=== PATIENT | female | born 1990 | race Two or more races ===

== ENCOUNTER 2021-04-27 08:43 | Outpatient (CLI) | payer OTHER ==
[~2021-04-27 08:43] MED LIST: FOLIC ACID1 MG PO; LOVENOX40 MG/0.4 IJ; PRENATAL 19 TA1 EAC1 PO; PROGESTERONA VAG
== END 2021-04-27 08:55 | disposition home or self-care (01) ==
LOC: NST 08:43
PROVIDERS: ATTEND Obstetrics & Gynecology Maternal & Fetal Medicine
DX: Z34.83 Encounter for supervision of other normal pregnancy, third trimester (principal)

== ENCOUNTER 2021-05-11 12:36 | Outpatient (CLI) | payer OTHER | END 2021-05-11 13:56 | disposition home or self-care (01) | LOC: NST 12:36 | PROVIDERS: ATTEND Obstetrics & Gynecology | DX: Z34.82 Encounter for supervision of other normal pregnancy, second trimester (principal) ==

== ENCOUNTER 2021-05-15 11:26 | Outpatient (CLI) | payer OTHER | END 2021-05-15 11:59 | disposition home or self-care (01) | LOC: NST 11:26 | PROVIDERS: ATTEND Obstetrics & Gynecology Maternal & Fetal Medicine | DX: Z34.82 Encounter for supervision of other normal pregnancy, second trimester (principal) ==

== ENCOUNTER 2021-07-05 19:51 | Inpatient (IN) | payer OTHER ==
[~2021-07-05] VITALS: Ht 152.4 cm; Wt 72.6 kg
[2021-07-06] MEDS ORDERED: CRINONE1.125 G1 (08:34)
== END 2021-07-08 10:31 | disposition home or self-care (01) | DRG 833 ==
LOC: LDR 19:51 → OB/GYN 07-07 09:50
PROVIDERS: ADMIT Obstetrics & Gynecology Maternal & Fetal Medicine; ATTEND Obstetrics & Gynecology Maternal & Fetal Medicine
PROC: 4A1HXCZ Monitoring of Products of Conception, Cardiac Rate, External Approach (ICD-10-PCS; principal; 2021-07-05)
DX: O60.03 Preterm labor without delivery, third trimester (principal); Z3A.35 35 weeks gestation of pregnancy; Z20.822 Contact with and (suspected) exposure to COVID-19

== ENCOUNTER 2021-07-28 09:50 | Inpatient (IN) | payer OTHER ==
[~2021-07-28] VITALS: Ht 152.4 cm; Wt 70.8 kg
[~2021-07-28 09:50] MED LIST changes: +CRINONE1.125 G1
== END 2021-07-30 12:48 | disposition home or self-care (01) | DRG 788 ==
LOC: LDR 09:50 → OB/GYN 15:18
PROVIDERS: ADMIT Obstetrics & Gynecology; ATTEND Obstetrics & Gynecology
PROC: 4A1HXCZ Monitoring of Products of Conception, Cardiac Rate, External Approach (ICD-10-PCS; 2021-07-28)
PROC: 10D00Z1 Extraction of Products of Conception, Low, Open Approach (ICD-10-PCS; principal; 2021-07-28 12:00)
DX: O34.211 Maternal care for low transverse scar from previous cesarean delivery (principal); Z3A.38 38 weeks gestation of pregnancy; Z37.0 Single live birth; Z20.822 Contact with and (suspected) exposure to COVID-19

== ENCOUNTER 2022-01-28 08:15 | Emergency (ER) | payer OTHER ==
[~2022-01-28] VITALS: Ht 152.4 cm; Wt 59.0 kg
[2022-01-28] MEDS ORDERED: OCUFLOX5 ML OP (09:07)
== END 2022-01-28 09:18 | disposition home or self-care (01) ==
LOC: ER 08:15
DX: S05.02XA Injury of conjunctiva and corneal abrasion without foreign body, left eye, initial encounter (principal); X58.XXXA Exposure to other specified factors, initial encounter; Y93.84 Activity, sleeping; Y92.013 Bedroom of single-family (private) house as the place of occurrence of the external cause; Y99.9 Unspecified external cause status; Z88.8 Allergy status to other drugs, medicaments and biological substances

== ENCOUNTER 2022-03-17 06:19 | Emergency (ER) | payer OTHER ==
[~2022-03-17] VITALS: Ht 152.4 cm; Wt 61.2 kg
[~2022-03-17 06:19] MED LIST changes: +OCUFLOX5 ML OP
== END 2022-03-17 10:33 | disposition home or self-care (01) ==
LOC: ER 06:19
DX: H10.013 Acute follicular conjunctivitis, bilateral (principal); Z20.822 Contact with and (suspected) exposure to COVID-19; Z88.8 Allergy status to other drugs, medicaments and biological substances

== ENCOUNTER 2022-10-03 12:16 | Emergency (ER) | payer OTHER ==
[~2022-10-03] VITALS: Ht 152.4 cm; Wt 59.0 kg
[2022-10-03] MEDS ORDERED: MULTI VITAMIN1 EACH PO (12:26)
[2022-10-03] MEDS ORDERED: AMOX1TAB5 PO (14:12)
== END 2022-10-03 14:16 | disposition home or self-care (01) ==
LOC: ER 12:16
PROVIDERS: General Practice
DX: J03.90 Acute tonsillitis, unspecified (principal); B34.9 Viral infection, unspecified; Z88.8 Allergy status to other drugs, medicaments and biological substances; Z20.822 Contact with and (suspected) exposure to COVID-19
CPT/HCPCS: 36415; 96372; 99284; J1100

== ENCOUNTER 2023-11-17 09:17 | Emergency (ER) | payer OTHER ==
[~2023-11-17] VITALS: Ht 152.4 cm; Wt 61.2 kg
[~2023-11-17 09:17] MED LIST changes: +AMOX1TAB5 PO; +MULTI VITAMIN1 EACH PO
[2023-11-17] MEDS ORDERED: PEPCID AC20 MG (09:32)
[2023-11-17] MEDS ORDERED: PROTONIX40 MG PO (09:32)
[2023-11-17] MEDS ORDERED: HYOSCYAMINE SULFATE 0.125 MG TAB.SUBL SL ONE (10:15)
[2023-11-17] MEDS ORDERED: KETOROLAC TROMETHAMINE 30 MG VIAL IM ONE (10:15)
[2023-11-17 10:55] LABS: HEMOGLOBIN 14.7 g/dL (12.0-15.00); MEAN CELL VOLUME 83.3 fL (80.00-100.00); MEAN CORPUSCULAR HEMOGLOBIN 27.9 pg (27.00-32.0); MEAN CORPUSCULAR HGB CONC 33.5 g/dl (32.0-36.0); PLATELET COUNT 212 K/uL (150-450); RED BLOOD COUNT 5.28 M/uL (4.00-6.00); RED CELL DISTRIBUTION WIDTH 12.4 % (11.5-14.5)
[2023-11-17 11:41] LABS: ALBUMIN 3.9 gm/dL (3.4-5.0); BILIRUBIN TOTAL 0.28 mg/dL (0.3-1.2); CALCIUM 9.4 mg/dL (8.5-10.1); CREATININE SERUM 0.81 mg/dL (0.55-1.02); GFR 80.46; GLOBULINA 3.3 G/DL (2.4-3.5); POTASSIUM 4.12 mEq/L (3.5-5.1); TOTAL PROTEIN 7.2 gm/dL (6.4-8.2)
== END 2023-11-17 12:26 | disposition home or self-care (01) ==
LOC: ER 09:18
PROVIDERS: General Practice
DX: M54.50 Low back pain, unspecified (principal); Z88.8 Allergy status to other drugs, medicaments and biological substances
CPT/HCPCS: 36415; 72100; 96372; 99283; J1885

== ENCOUNTER 2023-11-26 08:40 | Emergency (ER) | payer OTHER ==
[~2023-11-26] VITALS: Ht 152.4 cm; Wt 61.2 kg
[~2023-11-26 08:40] MED LIST changes: +PEPCID AC20 MG; +PROTONIX40 MG PO
[2023-11-26] MEDS ORDERED: PEPCID AC10 MG PO (08:51)
[2023-11-26] MEDS ORDERED: MAGNESIUM200 MG PO (08:51)
[2023-11-26] MEDS ORDERED: PROTONIX20 MG PO (08:51)
[2023-11-26] MEDS ORDERED: 0.9 % SODIUM CHLORIDE 1,000 ML IV ONE (09:00)
[2023-11-26] MEDS ORDERED: FAMOtidine 10 MG/ML (4ML VIAL) IV ONE (09:00)
[2023-11-26] MEDS ORDERED: TAMSULOSIN HCL 0.4 MG CAP PO ONE (09:00)
[2023-11-26] MEDS ORDERED: KETOROLAC TROMETHAMINE 60 MG VIAL IM ONE (09:00)
[2023-11-26] MEDS ORDERED: ONDANSETRON HCL 2 MG/ML VIAL IV ONE (09:00)
[2023-11-26 09:47] LABS: HEMATOCRIT 45.3 % (36.0-45.00); HEMOGLOBIN 15.4 g/dL (12.0-15.00); MEAN CELL VOLUME 83.2 fL (80.00-100.00); MEAN CORPUSCULAR HEMOGLOBIN 28.2 pg (27.00-32.0); MEAN CORPUSCULAR HGB CONC 33.9 g/dl (32.0-36.0); PLATELET COUNT 177 K/uL (150-450); RED BLOOD COUNT 5.45 M/uL (4.00-6.00); RED CELL DISTRIBUTION WIDTH 12.9 % (11.5-14.5)
[2023-11-26 10:17] LABS: ALBUMIN 4.2 gm/dL (3.4-5.0); ALKALINE PHOSPHATASE 77 U/L (50-136); ALT/SGPT 20 U/L (12-78); AMYLASE 98 U/L (25-115); ANION GAP 8 (10.0-20.0); AST/SGOT 17 U/L (15-37); BILIRUBIN TOTAL 0.57 mg/dL (0.3-1.2); BLOOD UREA NITROGEN 22 mg/dL (7-18); BUN CREA RATIO 28 (7.0-25.0); CALCIUM 8.8 mg/dL (8.5-10.1); CARBON DIOXIDE 27 mEq/L (21-32); CHLORIDE 108 mmol/L (98-107); GFR 81.62; GLOBULINA 3.3 G/DL (2.4-3.5); GLUCOSE FASTING 88 mg/dL (65-100); LIPASE 58 U/L (13-75); OSMOLALITY SERUM 280 MOSM/KG (275-295); POTASSIUM 3.91 mEq/L (3.5-5.1); SODIUM 139 mmol/L (136-145); TOTAL PROTEIN 7.5 gm/dL (6.4-8.2)
[2023-11-26 10:28] LABS: HCG QUANTITATIVE < 1 mUI/mL (1-3)
[2023-11-26 10:33] LABS: URINE APPEARANCE Clear; URINE BILIRRUBIN Negative (NEGATIVE); URINE BLOOD Negative; URINE COLOR Yellow; URINE GLUCOSE Negative (NEGATIVE); URINE KETONE Negative (NEGATIVE); URINE LEUKOCYTE Negative; URINE NITRATE Negative; URINE PROTEIN Negative (NEGATIVE); URINE UROBILINOGEN 0.2 E.U./dl
[2023-11-26 10:37] LABS: URINE BACTERIA 3891.7 uL (0.0-1933); URINE EPITHELIAL CELLS 22.5 uL (0.0-38.8); URINE RBC 9.9 uL (0.0-20.8); URINE WBC 32.7 uL (0.0-23.2)
[2023-11-26] MEDS ORDERED: ZOFRAN8 MG PO (12:14)
[2023-11-26] MEDS ORDERED: PEPCID AC20 MG PO (12:14)
== END 2023-11-26 12:37 | disposition home or self-care (01) ==
LOC: ER 08:42
PROVIDERS: General Practice
DX: R10.13 Epigastric pain (principal); R11.2 Nausea with vomiting, unspecified; R10.9 Unspecified abdominal pain; Z88.1 Allergy status to other antibiotic agents
CPT/HCPCS: 36415; 74177; 96365; 96366; 96372; 99284; J1885; J2405; J3490; J7030; Q9965